=== PATIENT | female | born 1940 | race Caucasian/White ===

== ENCOUNTER 2019-03-17 05:33 | Day surgery (SDC) | payer OTHER ==
[~2019-03-17] VITALS: Ht 160 cm; Wt 68.0 kg
[~2019-03-17 05:33] MED LIST: ASPIRIN81 M2 PO; ATORVASTATIN CA40 MG PO; BIOTIN300 MCG PO; LASIX 20 MG TAB20 MG PO; LISINOPRIL40 MG PO; RESTORIL15 MG PO; TOPROL XL100 MG PO; VITAMIN D2000 UNIT PO
[2019-03-17 10:09] VITALS: BP 155/74
--- NOTE | 2019-03-21 06:14 | O ---
[facility] [place] [address] OPERATIVE REPORT Name: BRENTON WESLEY Room #: [facility]P [facility].#: [id number] Admission: 03/17/19 ������������������ Attend Phys: Kurt Parker MD Discharge: 03/17/19 ������������������ Date of : 42 Report #: [id number] THIS REPORT FOR: //name// CC: Katharina Parker PREOPERATIVE DIAGNOSIS: Unilateral left nasal lacrimal duct obstruction. POSTOPERATIVE DIAGNOSIS: Unilateral left nasal lacrimal duct obstruction. OPERATION PERFORMED: Unilateral left endoscopic balloon dacryoplasty with silicone intubation. ANESTHESIA: General. COMPLICATIONS: None. INDICATIONS FOR SURGERY: This patient has acquired unilateral nasal lacrimal duct stenosis with chronic tearing and discharge. The current procedures are undertaken in order to improve the patient's level of lacrimal outflow and visual clarity. Informed consent was obtained to include but not limited to the potential risks for damage to the eye, loss of vision, bleeding, infection, failure to improve the problem and need for further surgery. DESCRIPTION OF OPERATION: The patient was taken to the operating room, where general anesthesia was administered. The medial canthus was anesthetized with 2% Xylocaine with epinephrine mixed with equal parts of 0.75% Marcaine with Wydase. The lateral wall of the nose was then injected with the same anesthetic mixture. The nose was packed with Afrin-soaked Cottonoids. The patient was then prepped and draped in the usual sterile fashion. The superior and inferior puncta were then atraumatically dilated with a punctum dilator. A size 0 lacrimal probe was then passed through the superior canalicular system and through the stenosed nasal lacrimal duct. The nasal packing was removed and the endoscope was brought into the field. The inferior turbinate was gently infractured with a [place] periosteal elevator to allow visualization of the inferior meatus in the area of the opening of the valve of Hasner in the nose. The probe was found and confirmed to be in the proper location. It was removed and subsequently replaced with a size 1 and a size 2 Kamara probe, which also had their passage confirmed endoscopically to be in the proper location. A 3 x 15 LacriCatheter was lubricated with a small quantity of ophthalmic [address] [address] OPERATIVE REPORT Name: BRENTON WESLEY Room #: [facility].#: [id number] Admission: 03/17/19 ������������������ Attend Phys: Kurt Parker MD Discharge: 03/17/19 ������������������ Date of : 42 Report #: [id number] antibiotic ointment. The LacriCatheter was then passed through the superior canalicular system and the stenosed nasal lacrimal duct. The LacriCatheter was confirmed to be in the proper location endoscopically intranasally in the inferior meatus. The LacriCatheter was inflated to 9 atmospheres for 90 seconds and deflated. The catheter was then inflated to 9 atmospheres for 60 seconds. The catheter was then withdrawn to the proximal black ring. It was then inflated to 9 atmospheres for 90 seconds. The balloon was then deflated and reinflated to 9 atmospheres for 60 seconds. The balloon was the aspirated and withdrawn to the distal black ring. It was then inflated to 9 atmospheres for 90 seconds. The balloon was deflated and reinflated to 9 atmospheres for 60 seconds. The balloon was then deflated and vigorously aspirated as it was withdrawn through the superior canalicular system. A Justin tube was then passed through the superior canalicular system and out the dilated duct. The Justin tube was secured under the inferior turbinate in the inferior meatus with a Justin hook and retrieved endoscopically. The Justin tube was then passed through the inferior canalicular system in a similar fashion and was retrieved endoscopically in the nose atraumatically. The Justin tube was then secured to itself with 3 square throws and then to the lateral wall of the nose with a 5-0 Prolene suture. Antibiotic steroid drops were then placed in the eye. A small quantity of ophthalmic antibiotic ointment was placed on the Justin tube. The patient was then transported to the recovery area with no anesthetic or operative complications being noted. ��������������������������������������������� <ELECTRONICALLY SIGNED> ���������������������������������������� By: Kurt Parker MD ��������������������������������������������� 03/21/19 0614 [id number] Kurt Parker MD /nt
== END 2019-03-17 11:25 | disposition home or self-care (01) ==
LOC: OR 05:33 → TBA 05:34 → OR 10:25
DX: H04.552 Acquired stenosis of left nasolacrimal duct (principal); I12.9 Hypertensive chronic kidney disease with stage 1 through stage 4 chronic kidney disease, or unspecified chronic kidney disease; E11.22 Type 2 diabetes mellitus with diabetic chronic kidney disease; N18.3 Chronic kidney disease, stage 3 (moderate); E78.5 Hyperlipidemia, unspecified; Z85.828 Personal history of other malignant neoplasm of skin; Z98.41 Cataract extraction status, right eye; Z98.42 Cataract extraction status, left eye; Z98.51 Tubal ligation status; Z88.2 Allergy status to sulfonamides; Z88.6 Allergy status to analgesic agent; Z79.82 Long term (current) use of aspirin; Z79.899 Other long term (current) drug therapy; Z98.890 Other specified postprocedural states
CPT/HCPCS: 50010; 50101; 50386; 50398; 51777; 55343; 56528; 62110; 62900; 64037; 70005